=== PATIENT | male | born 1995 | race Caucasian/White ===

== ENCOUNTER 2021-04-10 00:46 | Emergency (ER) | payer OTHER, MEDICAID, SELFPAY ==
[2021-04-10 01:10] VITALS: BP 127/61; PULSE 66; RESP 16; TEMP 36.6; O2SAT 98; BMI 22.6
--- NOTE | 2021-04-10 01:43 | PC.NURSE ---
at bedside for primary eval.
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
[2021-04-10] MEDS: Acetaminophen 325 MG TABLET 975 MG PO (02:24)
[2021-04-10] MEDS: Ibuprofen 400 MG TABLET PO (02:24)
== END 2021-04-10 03:05 | disposition home or self-care (01) ==
PROVIDERS: Emergency Provider Student in an Organized Health Care Education/Training Program
DX: S09.90XA Unspecified injury of head, initial encounter (principal); G44.309 Post-traumatic headache, unspecified, not intractable; V43.52XA Car driver injured in collision with other type car in traffic accident, initial encounter; Y93.9 Activity, unspecified; Y92.410 Unspecified street and highway as the place of occurrence of the external cause; Y99.9 Unspecified external cause status
CPT/HCPCS: 99283

== ENCOUNTER 2025-05-11 13:23 | Outpatient (AMB) | payer OTHER, MEDICAID, MEDICARE, SELFPAY ==
--- NOTE | 2025-05-11 13:27 | A.OFFPC_ITS ---
Vital Signs 05/11/25 13:30 Height 5 ft 2.5 in Weight 138 lb 6 oz BMI 24.9 BP 104/70 Blood Pressure Location Lt brachial Position Sitting Respiration 16 Pulse 81 Pulse Source Pulse Oximeter Temp 97.5 F Temp Source Temporal Artery Scan Pulse Oximetry (%) 96 Oxygen Delivery Method Room Air Intake Visit Reasons: follow up, reestablish care City Dispatcher Required: No Accompanied by: Self / Same As Patient Allergies sulfadiazine Allergy (Unknown, Verified 05/11/25 13:28) Blister adapalene Adverse Reaction (Intermediate, Verified 05/11/25 14:12) burning, discomfort Medication List - Last Reconciled 05/11/25 by Cate Clark MD cholecalciferol (vitamin D3) 50 mcg PO DAILY citalopram 10 mg PO DAILY clindamycin phosphate 1% topical cyanocobalamin (vitamin B-12) 1,000 mcg PO DAILY docusate sodium 100 mg PO BID PRN fluticasone propionate 50 mcg/actuation 1 spray intranasal BID lorazepam 0.5 mg PO omeprazole 20 mg PO DAILY trazodone 50 mg PO BEDTIME triamcinolone acetonide 0.025% appl topical Tobacco use date assessed: 05/11/25 Dental Screening Dental Screen Date: 05/11/25 Did you have a dental visit in the last 12 months?: Yes Did you have a dental problem in the last 6 months where you did not have access to dental care?: No Was dental information given to patient?: Patient has dentist HPI HPI Comments History of Present Illness Details The patient is a 30-year-old male presenting for re-establishing care and follow-up Down Syndrome/Autism: Patient with Down syndrome , sees neurobehavioral specialist in [place]. Gastroesophageal Reflux Disease: Experiencing GERD with choking and phlegmy, clear vomit. Symptoms worse at night. Reflux detected with prior imaging. Omeprazole adjusted to 40 mg nightly. Atopic Dermatitis: Patient has atopic dermatitis with effective control from triamcinolone but recurs after cessation. Experienced an adverse reaction to Adapalene (burning). Amlactin used for the hands. Leukemia Screening: Routine CBCs performed for leukemia risk. No abnormalities have been noted in the CBC results. Aortic Regurgitation: History of aortic regurgitation. Last echo at [facility]. History of Pneumonia: Hospitalized November for pneumonia, resolved. Follow-up imaging showed no recurrence. Raynaud's- stable B12 deficiency - on b12 supplements Vitamin d deficiency- on vitamin d supplementation Depression/anxiety- stable Social History: - Lives with mother, who is his legal gu bruno - Attends a program called [employer] - Enjoys watching [employer] Story Review of Systems - Gastrointestinal: Reports reflux sympt oms including choking and phlegmy, clear vomit. - Dermatological: Reports irritation and burning with Adapalene use; reports atopic dermatitis flares. Physical Exam - General- Well-nourished, no swelling i n ankles. - Respiratory- No wheezing or abnormal l landy sounds. - Cardiovascular- Soft murmur detected; normal heart sounds. - Abd: SNTND, +BS - Skin- Noted redness in dermatitis-rela frank areas; no angry inflammation observed. Assessment and Plan 1. Down Syndrome - check CBC 2. Gastroesophageal Reflux Disease - Increase omeprazole to 40 mg at night. Reassess in two weeks. 3. Atopic Dermatitis - Use triamcinolone for flares. Avoid Ad apalene; consult hub cutter apprentice. 4. Aortic Regurgitation - Schedule echocardiogram; Discussion Notes During the visit, we discussed re-establishing care, focusing on Down syndrome and associated health management areas. The importance of ongoing leukemia screening through regular CBCs was highlighted due to increased risk in Down syndrome patients. Adjustments to the GERD treatment plan were outlined, increasing omeprazole to 40 mg for better symptom management and plan to monitor efficacy after two weeks. For atopic dermatitis, avoidance of Adapalene due to adverse reactions was advised, and the efficacy of triamcinolone was acknowledged, with a recommendation to explore non-steroidal alternatives in consultation with a hub cutter apprentice. Follow up in 3-4 months for wellness visit Patient Instructions - Take omeprazole 40 mg at night as dire cted. - Monitor changes in reflux symptoms and report in two weeks. - Apply triamcinolone cream as needed fo r skin flares. Avoid Adapalene. - Follow up with the hub cutter apprentice warren lauren skin treatment options. [facility] Medical History (Updated 05/11/25 @ 17:42 by Cate Clark MD) Vitamin D deficiency B12 deficiency Raynaud disease Anxiety Depression Aortic regurgitation Autism Sleep apnea Down syndrome Social History Housing: House Patient Tobacco Use Status: Never used Tobacco e-Cigarette/Vaping Use: Never Used Current occupational status: disabled Questionnaire AUDIT C Alcohol Use Questionnaire (AUDIT-C) 1. How often do you have a drink containing alcohol?: Never 3. How often do you have six or more drinks on one occasion?: Never Total Score: 0 Physical exam (Primary Care) Vital Signs: Last Vital Signs Temp 97.5 F 05/11/25 13:30 Pulse 81 05/11/25 13:30 Resp 16 05/11/25 13:30 BP 104/70 05/11/25 13:30 Pulse Ox 96 05/11/25 13:30 Oxygen Delivery Method Room Air 05/11/25 13:30 BMI result Body Mass Index 24.9 Tobacco/Smoking Status: Tobacco use Status Tobacco use date assessed 05/11/25 05/11/25 13:39 Patient Tobacco Use Status Never used Tobacco 05/11/25 13:39 e-Cigarette/Vaping Use Never Used 05/11/25 13:39 Coding Level of Care Code Est Pt Level 4 (32787) Complex EM visit Add On G2211 Diagnoses Down syndrome Q90.9 Autism F84.0 Raynaud's disease without gangrene I73.00 Raynaud?s-associated gangrene presence: without gangrene B12 deficiency E53.8 Vitamin D deficiency E55.9 Aortic valve insufficiency, etiology of cardiac valve disease unspecified I35.1 Cardiac valve disease etiology: etiology unspecified Assessment & Plan Assessment & Plan (1) Down syndrome: Code(s): Q90.9 - Down syndrome, unspecified Category: Medical (2) Autism: Code(s): F84.0 - Autistic disorder Category: Medical (3) Raynaud disease: Code(s): I73.00 - Raynaud's syndrome without gangrene Category: Medical Qualifiers: Raynaud?s-associated gangrene presence: without gangrene Qualified Code(s): I73.00 - Raynaud's syndrome without gangrene Plan: see above, continue to monitor (4) B12 deficiency: Code(s): E53.8 - Deficiency of other specified B group vitamins Category: Medical (5) Vitamin D deficiency: Code(s): E55.9 - Vitamin D deficiency, unspecified Category: Medical (6) Aortic regurgitation: Code(s): I35.1 - Nonrheumatic aortic (valve) insufficiency Category: Medical Qualifiers: Cardiac valve disease etiology: etiology unspecified Qualified Code(s): I35.1 - Nonrheumatic aortic (valve) insufficiency Plan - Omeprazole 40 mg nightly. - Echocardiogram order for aortic regurgitation. - CBCs for leukemia risk monitoring. - Continue triamcinolone use; avoid Adapalene. - Follow up in 3-4 months Orders: Orders Lipid Panel Today E53.8 - Deficiency of other specified B group vitamins, E55.9 - Vitamin D deficiency, unspecified, F84.0 - Autistic disorder, I73.00 - Raynaud's syndrome without gangrene, Q90.9 - Down syndrome, unspecified Vitamin D 25-OH Total Today E53.8 - Deficiency of other specified B group vitamins, E55.9 - Vitamin D deficiency, unspecified, F84.0 - Autistic disorder, I73.00 - Raynaud's syndrome without gangrene, Q90.9 - Down syndrome, unspecified Comprehensive Met. Panel Today E53.8 - Deficiency of other specified B group vitamins, E55.9 - Vitamin D deficiency, unspecified, F84.0 - Autistic disorder, I73.00 - Raynaud's syndrome without gangrene, Q90.9 - Down syndrome, unspecified Complete Blood Count Auto Diff Today E53.8 - Deficiency of other specified B group vitamins, E55.9 - Vitamin D deficiency, unspecified, F84.0 - Autistic disorder, I73.00 - Raynaud's syndrome without gangrene, Q90.9 - Down syndrome, unspecified TSH reflex Free T4 Today E53.8 - Deficiency of other specified B group vitamins, E55.9 - Vitamin D deficiency, unspecified, F84.0 - Autistic disorder, I73.00 - Raynaud's syndrome without gangrene, Q90.9 - Down syndrome, unspecified Vitamin B12 Today E53.8 - Deficiency of other specified B group vitamins, E55.9 - Vitamin D deficiency, unspecified, F84.0 - Autistic disorder, I73.00 - Raynaud's syndrome without gangrene, Q90.9 - Down syndrome, unspecified Magnesium Today E53.8 - Deficiency of other specified B group vitamins, E55.9 - Vitamin D deficiency, unspecified, F84.0 - Autistic disorder, I73.00 - Raynaud's syndrome without gangrene, Q90.9 - Down syndrome, unspecified CA echo transthoracic complete Today I35.1 - Nonrheumatic aortic (valve) insufficiency, Q90.9 - Down syndrome, unspecified Medications: New omeprazole 40 mg PO DAILY 30 caps 0RF night time reflux 30 days
[2025-05-11 13:30] VITALS: BP 104/70; PULSE 81; RESP 16; TEMP 36.4; O2SAT 96; BMI 24.9
--- OUTSIDE RECORDS SUMMARY | 2025-05-11 16:20 | XMS_ITS | Data Portability ---
Author Organization MD - [facility], Allergy Address [address] [place] [id number] Care Team Providers Care Field Representative/Health Education Name Role Phone BRANDI DAMIAN Primary Care Provider Assessment No assessment recorded. Plan of Treatment Reminders Order Date Submit Date Provider Last Modified By Organization Details Last Modified Time Details Appointments Establish ed 15 2024 02:00P M PURNIMA SHANNON MD Not available Not available Not available Lab None recorded. Referral None recorded. Procedures None recorded. Surgeries None recorded. Imaging None recorded. Medication Orders tobramyci n 0.3 %-dexamet hasone 0.05 % eye drops,thaddeus pension 2024 025 [facility][id number], [address] [place], [place], [phone], 03/25/2025 10:47:59 Patient TargetsNo targets recorded. Patient InstructionsNo instructions recorded. Reason for Referral None Reported. Results Created Date Observation Date Name Description Value Unit Range Abnormal Flag Note LastModifiedBy Organization Detail LastModifiedTime 02/25/2007/16/2022 imagi ng/di agnos tic resul t No observ ation record ed. [email or web address] Not Available 12:21:11 02/25/2008/15/2023 imagi ng/di agnos tic resul t No observ ation record ed. [email or web address] Not Available 12:21:12 02/25/20 24 10/27/2018 audio gram No observ ation record ed. [email or web address] Not Available 12:21:22 02/25/20 24 10/31/2020 imagi ng/di agnos tic resul t No observ ation record ed. [email or web address] Not Available 12:21:26 02/25/20 24 07/16/2022 audio gram No observ ation record ed. [email or web address] Not Available 12:21:32 02/25/20 24 10/27/2018 audio gram No observ ation record ed. [email or web address] Not Available 12:21:41 02/25/20 24 10/31/2020 audio gram No observ ation record ed. [email or web address] Not Available 12:21:46 Result Notes None recorded. 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 Chromosom al anomalies : Down's syndrome; Note: Date Diagnosed : 11/16/2014 4:08 PM (758.0) Not Available [facility] 4 03:12:52 Impacted cerumen 52445006 Active 2014 Impacted cerumen; Note: Date Diagnosed : 11/16/2014 4:13 PM (380.4) Not Available [facility] 4 03:12:52 Abnormal auditory perceptio n 60504982 Active 2015 Other abnormal auditory perceptio ns, bilateral ; Note: Date Diagnosed : 6 5:24 PM (H93.293) Not Available [facility] 4 03:12:52 Impacted cerumen in left ear 92341367420 19759 Active 2016 Impacted cerumen, left ear; Note: Date Diagnosed : 7 10:11 AM (H61.22) Not Available [facility] 4 03:12:51 Impacted cerumen of bilateral ears 98032595994 00562 Active 2018 Impacted cerumen, bilateral ; Note: Date Diagnosed : 10/27/2018 9:43 AM (H61.23) Not Available [facility] 4 03:12:51 Otorrhea of right ear 97817019591 69111 Active 2021 Otorrhea, right ear; Note: Date Diagnosed : 2 4:41 PM (H92.11) Not Available [facility] 4 03:12:52 Acute contact otitis externa 62302332 Active 2022 Acute contact otitis externa, right ear; Note: Date Diagnosed : 01/28/2023 4:47 PM (H60.531) Not Available [facility] 4 03:12:52 Obstructi ve sleep apnea syndrome 97602828 Active 2022 Obstructi ve sleep apnea (adult) (pediatri c); Note: Date Diagnosed : 11/16/2014 4:13 PM (327.23) ; Start Date : 5 Obstruc tive sleep apnea (adult) (pediatri c); Note: Date Diagnosed : 3 4:07 PM (G47.33) Not Available [facility] 4 03:12:52 Impacted cerumen in right ear 39568177459 62380 Active 2022 Impacted cerumen, right ear; Note: Date Diagnosed : 3 4:07 PM (H61.21) Not Available [facility] 4 03:12:53 Acute myringiti s of right ear 56983507145 12448 Active 2024 PURNIMA SHANNON MD [address] [place] [address], [place], [address] , [facility] - [facility] 5 10:46:13 Problem Notes None recorded. Medical Equipment None Reported. Allergies No known drug allergies Medications Name Sig Start Date Stop Date Status Note LastModified by Organization Details LastModified Time Prescript ion - Change active Not Available Not Available Not Available oxcarbaze pine 150 mg tablet 04/30 completed Medicati on ID: [id number] D uration Value: 90 Brand Name: oxcarbaz epine Se nd Method: E-Prescr ibed Sub s Allowed: subs OK Speci al Instruct ion: TK 1 T PO BID Medi cationGe nericNam e: oxcarbaz epine Not Available Not Available Not Available trazodone 50 mg tablet TAKE 1 TABLET BY MOUTH AT BEDTIME active Not Available Not Available No t Available benzonata te 200 mg capsule TAKE 1 CAPSULE BY MOUTH THREE TIMES DAILY FOR 7 DAYS NEEDED FOR COUGH. DO NOT CRUSH OR CHEW 03/25 completed Not Available Not Available Not Available citalopra m 10 mg tablet TAKE 1 TABLET BY MOUTH IN THE MORNING active Not Available Not Available No t Available tretinoin 0.025 % topical cream active Not Available Not Available Not Available senna 8.6 mg tablet TAKE 1 TABLET BY MOUTH EVERY NIGHT AT BEDTIME NEEDED FOR CONSTIPA TION active Not Available Not Available No t Available minocycli ne 100 mg capsule 03/25 completed Not Available Not Available Not Available cyanocoba enrico (vit B-12) 1,000 mcg tablet TAKE 1 TABLET BY MOUTH DAILY active Not Available Not Available No t Available doxycycli ne monohydra te 100 mg tablet TAKE 1 TABLET BY MOUTH TWICE DAILY FOR 14 DAYS 03/25 completed Not Available Not Available Not Available triamcino lone acetonide 0.1 % topical cream 04/30 completed Medicati on ID: [id number] D uration Value: 30 Brand Name: triamcin olone acetonid e Send Method: E-Prescr ibed Sub s Allowed: subs OK Speci al Instruct ion: APPLY TOPICALL Y BID PRN FOR RASH Med icationG enericNa me: triamcin olone acetonid e Not Available Not Available Not Available dexametha sone sodium phosphate 0.1 % eye drops INSTILL 2 DROPS TO RIGHT EAR TWICE DAILY FOR 10 DAYS active Not Available Not Available No t Available ofloxacin 0.3 % ear drops Instill 5 drops twice a day by otic route for 10 days, for right ear. 04/15 completed Not Available Not Available Not Available amoxicill in 875 mg tablet TAKE 1 TABLET BY MOUTH TWICE DAILY FOR 7 DAYS active Not Available Not Available No t Available lorazepam 0.5 mg tablet TAKE 1 TABLET BY MOUTH NEEDED FOR ANXIETY AND MAY REPEAT ONCE IN 30 MINUTES NEEDED. NOT TO EXCEED 2 DOSES IN 24 HOURS active Not Available Not Available No t Available clindamyc in 1 % topical gel 04/30 completed Medicati on ID: [id number] D uration Value: 30 Brand Name: rose marie lopez phosphat e Send Method: E-Prescr ibed Sub s Allowed: subs OK Specsaroj al Instruct ion: WESLEY EXT AA BID PRF ACNE Med icationG enericNa me: rose marie lopez phosphat e Not Available Not Available Not Available Ear Drops (carbamid e peroxide) 6.5 % PLACE 5 DROPS IN BOTH EARS TWICE DAILY FOR 4 DAYS. 03/25 completed Not Available Not Available Not Available docusate sodium 100 mg capsule TAKE 1 CAPSULE BY MOUTH TWICE DAILY NEEDED FOR CONSTIPA TION active Not Available Not Available No t Available omeprazol e 20 mg capsule,d elayed release TAKE 1 CAPSULE BY MOUTH DAILY BEFORE A MEAL active Not Available Not Available No t Available mupirocin 2 % topical ointment APPLY TOPICALL Y TO THE AFFECTED AREA TWICE DAILY FOR 14 DAYS APPLY TO AFFECTED SKIN active Not Available Not Available No t Available ondansetr on 4 mg disintegr ating tablet DISSOLVE 1 TABLET UNDER THE TONGUE THREE TIMES DAILY NEEDED FOR FOR NAUSEA OR VOMITING active Not Available Not Available No t Available fluticaso ne propionat e 50 mcg/actua tion nasal spray,thaddeus pension SHAKE LIQUID AND USE 1 SPRAY IN EACH NOSTRIL TWICE DAILY active Not Available Not Available No t Available doxycycli ne hyclate 100 mg tablet TAKE 1 TABLET BY MOUTH EVERY 12 HOURS FOR 7 DAYS 03/24 completed Not Available Not Available Not Available amoxicill in 875 mg-potass ium clavulana te 125 mg tablet TAKE 1 TABLET BY MOUTH EVERY 12 HOURS FOR 7 DAYS 03/24 completed Not Available Not Available Not Available clindamyc in 1 % lotion active Not Available Not Available Not Available aripipraz ole 5 mg tablet 04/30 completed Medicati on ID: [id number] D uration Value: 90 Brand Name: aripipra zole Sen d Method: E-Prescr ibed Sub s Allowed: subs ANDREY Ortiz al Instruct ion: TK 1 T PO D Medica tionGene ricName: aripipra zole Not Available Not Available Not Available Ciprodex 0.3 %-0.1 % ear drops,thaddeus pension Apply 4 drop into right ear twice a day as directed 12/14/ 2022 09/19 /2025 completed Medicati on ID: [id number] D uration Value: 14 Brand Name: Jovita Send Method: E-Prescr ibed Sub s Allowed: subs OK Medic ationGen ericName : Jovita Not Available Not Available Not Available adapalene 0.3 % topical gel APPLY SPARINGL Y TOPICALL Y TO FACE AT BEDTIME FOR ACNE active Not Available Not Available No t Available cholecalc iferol (vitamin D3) 50 mcg (2,000 unit) capsule TAKE 1 CAPSULE BY MOUTH DAILY active Not Available Not Available No t Available tobramyci n 0.3 %-dexamet hasone 0.05 % eye drops,thaddeus pension 4 drops to right ear twice a day for 10 days 2024 active Not Available Not Available Not Avai lable Vitals Date Recorded Body height Body mass index (BMI) Body weight Provider Name and Address Organization Details Last Updated DateTime 03/25/2024 154.94 cm 25.3 kg/m2 36317.38 g Latricia Helm [facility] 03/25/2024 16:29:16 Date Recorded Body height Body mass index (BMI) Body weight Provider Name and Address Organization Details Last Updated DateTime 03/25/2025 154.94 cm 23.2 kg/m2 58720.86 g Latricia Helm [facility] 03/25/2025 10:29:45 Social History None recorded. Functional Status None recorded. Mental Status None recorded. Family History Nothing Reported. Medical History No medical history recorded. Past Encounters Encounter ID Performer Location Encounter Start Date Encounter Closed Date Diagnosis/Indication Diagnosis SNOMED-CT Code Diagnosis ICD10 Code Diagnosis IMO Codes Diagnosis Note [id number] PURNIMA SHANNON MD [facility] [address] [address] 03/25/2024 15:23:02 03/25/2024 16:46:38 Impacted cerumen of bilateral ears [id number] 787309 H61.23 Cerumen was removed bilateral and tolerated well. Every 6 month cleaning previously recommende d due to infections when he was getting cleanings once a year. Will be due for updated audiogram at that time. [id number] PURNIMA SHANNON MD [facility] [address] [place] [address] 03/25/2025 10:24:54 03/25/2025 10:53:48 Acute myringitis of right ear [id number] 411821 H73.001 [id number] 30-year-ol d male presents today for evaluation . He is usually here every 6 months but was last seen a year ago. Dried blood was removed from the right ear canal, revealing granulatio n of the posterior TM consistent with acute myringitis . I sent in eardrops and recommende d dry ear precaution s. There was no obstructiv e cerumen on the left. Follow-up 2 weeks to ensure efficacy of treatment or if otherwise well, 6 months. Health Concerns Section Related Observation LastModified by Organization Detai ls LastModified Time None Recorded Concern Status LastModified by Organization Details LastModified Time None Recorded Advance Directives Directive None Recorded Payers Insurance Date Sequence Insurance Name Policy Number Policy Singh Covered Member ID Singh Member ID Guarantor Name 04/08/2025 2 [place] [facility] Huertas [id number] Adelaide Huertas 04/08/2025 1 [place] [employer] Jose Luis Huertas [id number] Adelaide Huertas Notes Date Note Type Note Provider Name and Address Organization Details Recorded Time 03/25/2024 text/html Here for cerumen removal, mom removed some from the left ear recently. No infections PV: : 28-year-old with trisomy 21 and mild obstructive sleep apnea. I was finally able to visualize is oropharynx today. Tonsils are 2+. He does havemacroglossia. Sleep study completed in August with overall AHI of 9.4. According to sleep medicine, he does not meet Medicare criteria for positive pressuredevice coverage.Given lack of tonsil hypertrophy, I do not feel that he is a good surgical candidate. Recommend that they continue to follow with sleep medicine. He may considermandibular advancement device if still unable to qualify for PAP.Follow-up in six months for cerumen check. PURNIMA SHANNON MD [address] [facility],[place] [address], [place], [address], [facility] - [facility] 03/26/2024 08:03:29 03/25/2025 text/html a few days ago, something dark in the ear went to yesterdaybleeding from the ear earlier this year had an ear wash on amoxicillin no ear drops PURNIMA SHANNON MD [address] [place] [address], [place], [address], [place] - [facility] 03/26/2025 07:17:37
== END 2025-05-11 14:43 | disposition home or self-care (01) ==
LOC: HO.HMCHD 13:24
PROVIDERS: Visit Provider Internal Medicine
DX: Q90.9 Down syndrome, unspecified (principal); F84.0 Autistic disorder; I73.00 Raynaud's syndrome without gangrene; E53.8 Deficiency of other specified B group vitamins; E55.9 Vitamin D deficiency, unspecified; I35.1 Nonrheumatic aortic (valve) insufficiency

== ENCOUNTER 2025-05-14 12:58 | Outpatient (REF) | payer MEDICARE, MEDICAID, SELFPAY ==
--- OUTSIDE RECORDS SUMMARY | 2025-05-11 23:59 | XMS_ITS | Continuity of Care Document ---
Author Organization [facility] Address [address] [place] [address]- Care Team Providers Care Sewer And Drain Technician Name Role Phone Eduardo MCDOWELL, Cate Velasquez Primary Care Physician [place] [facility] [place]/25 [facility] [address] [place] [address]- Attending Physician: Shoaib Lombardi Admitting Physician: Shoaib Lombardi Referring Physician: AdmShoaib alcocer Encounter Type: Triage Allergies, Adverse Reactions, Alerts Substance Criticality Severity Reaction Reaction Severity Status sulfa drugs Active Immunizations Given and Recorded Vaccine Date Status Refusal Reason influenza virus vaccine, inactivated 1 05/19/24 Gi alexus influenza virus vaccine, inactivated 2 05/19/24 Gi alexus influenza virus vaccine, inactivated 3 08/21/21 Gi alexus influenza virus vaccine, inactivated 4 05/15/20 Gi alexus influenza virus vaccine, inactivated 5 05/28/19 Gi alexus influenza virus vaccine, inactivated 6 04/09/18 Gi alexus SARS-CoV-2 (COVID-19) mRNA BNT-162b2 vac 06/21/21 Recorded SARS-CoV-2 (COVID-19) mRNA BNT-162b2 vac 10/25/20 Given SARS-CoV-2 (COVID-19) mRNA BNT-162b2 vac 10/04/20 Given tetanus/diphtheria/pertussis, acel(Tdap) 7 05/28/19 Given tetanus/diphtheria/pertussis, acel(Tdap) 10/11/15 Recorded Meningococcal Conjugate Vaccine 10/11/15 Recorded 1Result Comment: [facility] [id number] 2Result Comment: [id number] given w/out incident 3Result Comment: PT. TOLERATED INJ. WITHOUT COMPLICATIONS....[place] 4Result Comment: [facility]# [id number] 5Result Comment: [facility]# [id number] pt. tolerated inj. without complications....[place] 6Result Comment: [04/10/2018] [facility]# [id number] pt. tolerated inj. without complications....[place] 7Result Comment: [facility]# [id number] pt. tolerated inj. without complications....[place] Medications adapalene 0.3% topical gel APPLY SPARINGLY TO BACK AND FACE DAILY AT BEDTIME FOR ACNE. Start Date: 05/19/24 Status: Ordered Medication Dispense Status: Completed Total Allowed Fills: 1 Fills Dispensed: 0 [place] Saline Mist 0.65% nasal spray 2 sprays, Nares, Both, 4 times a day, # 1 each, 0 Refills, Maintenance, 03/24/25 10:41:00 AM EDT, [facility] #[id number], Partial fill upon patient request if the prescription is for a schedule II opioid drug., 2 sprays Nares, Both 4 times a day, 155, cm, 03/24/25 9:59:00 EDT, Height, 60, kg, 03/24/25 9:59:00 EDT, Dry Weight Start Date: 03/24/25 Status: Ordered Medication Dispense Status: Completed Quantity: 1.0 Unit: each Total Allowed Fills: 1 Fills Dispensed: 0 Indications: Acute upper respiratory infection, unspecified; citalopram 10 mg oral tablet TK 1 T PO D Start Date: 05/28/19 Status: Ordered Medication Dispense Status: Completed Total Allowed Fills: 1 Fills Dispensed: 0 clindamycin 1% topical lotion 0 Refills, Maintenance, 08/20/22 2:52:00 PM EST, Partial fill upon patient request if the prescription is for a schedule II opioid drug. Start Date: 08/20/22 Status: Ordered Medication Dispense Status: Completed Total Allowed Fills: 1 Fills Dispensed: 0 clotrimazole 1% topical cream 1 application, Topically, 2 times a day, PRN rash, # 30 Gm, 5 Refills, Maintenance, 03/19/21 10:59:00 AM EDT, Cream, [facility] #[id number], 1 application Topically 2 times a day,PRN:rash, 158.5,cm, 03/19/21 10:20:00 EDT, Height Start Date: 03/19/21 Status: Ordered Medication Dispense Status: Completed Quantity: 30.0 Unit: g Total Allowed Fills: 6 Fills Dispensed: 0 Colace sodium 100 mg oral capsule 100 mg, 1, capsule, By Mouth, 2 times a day, PRN, # 60 capsule, Refills 7, Tot. Refills 7, Maintenance, for constipation, 05/19/24 2:39:00 PM EST, Route to Pharmacy Electronically, [facility] #[id number], Partial fill upon patient request if the prescription is for a schedule II opioid drug., 156, cm, 05/19/24 13:57:00 EST, Height, 63, kg, 05/19/24 13:57:00 EST, Dry Weight Start Date: 05/19/24 Status: Ordered Medication Dispense Status: Completed Quantity: 60.0 Unit: capsule Total Allowed Fills: 8 Fills Dispensed: [address] with IPAP 14, EPAP 8 and RR 14, Maintenance, 09/27/15 10:38:04 AM EDT, Compound Start Date: 09/27/15 Status: Ordered Medication Dispense Status: Completed Total Allowed Fills: 1 Fills Dispensed: 0 fluticasone 50 mcg/inh nasal spray 1 sprays = 50 mcg, Nares, Both, 2 times a day, # 16 Gm, 0 Refills, Maintenance, 03/24/25 10:41:00 AMEDT, [place], [facility] #[id number], Partial fill upon patient request if the prescription is for a schedule II opioid drug., 1 sprays Nares, Both 2 times a day, 155, cm, 03/24/25 9:59:00 EDT, Height, 60, kg, 03/24/25 9:59:00 EDT, Dry Weight Start Date: 03/24/25 Status: Ordered Medication Dispense Status: Completed Quantity: 16.0 Unit: g Total Allowed Fills: 1 Fills Dispensed: 0 Indications: Acute upper respiratory infection, unspecified; Hibiclens 4% soap See Instructions, apply Topically Once, # 473 mL, 1 Refills, Soft Stop, 10/28/23 3:20:00 PM EDT, [facility] #[id number], Partial fill upon patient request if the prescription is for a schedule IIopioid drug., apply Topically Once, 155, cm, 10/28/23 14:03:00 EDT, Height, 58.5, kg, 04/04/22 16:19:00 EDT, Dry Weight Start Date: 10/28/23 Status: Ordered Medication Dispense Status: Completed Quantity: 473.0 Unit: mL Total Allowed Fills: 2 Fills Dispensed: 0 hydrOXYzine hydrochloride 10 mg oral tablet See Instructions, PRN anxiety, 1- 2 tablet By Mouth 2 times per day as needed for anxiety, # 30 tablet, 0 Refills, Maintenance, 08/20/22 2:57:00 PM EST, Tablet, [facility] #[id number], Partial fill upon patient request if the prescription is for a schedule II opioid drug., 155, cm, 08/20/22 14:15:00 EST, Height, 58.5, kg, 04/04/22 16:19:00 EDT, Dry Weight Start Date: 08/20/22 Status: Ordered Medication Dispense Status: Completed Quantity: 30.0 Unit: tablet Total Allowed Fills: 1 Fills Dispensed: 0 immunobio green cell supplement immunobio green cell supplement, Refills 0, Maintenance, 04/21/20 9:58:00 AM EDT, Supply Start Date: 04/21/20 Status: Ordered Medication Dispense Status: Completed Total Allowed Fills: 1 Fills Dispensed: 0 omeprazole 20 mg oral enteric coated capsule 1 capsule = 20 mg, By Mouth, Daily, before a meal, # 90 capsule, 2 Refills, Maintenance, 10/28/23 2:55:00 PM EDT, EC Capsule, [facility] #[id number], Partial fill upon patient request if the prescription is for a schedule II opioid drug., 155, cm, 10/28/23 14:03:00 EDT, Height, 58.5, kg, 04/04/22 16:19:00 EDT, Dry Weight Start Date: 10/28/23 Status: Ordered Medication Dispense Status: Completed Quantity: 90.0 Unit: capsule Total Allowed Fills: 3 Fills Dispensed: 0 Senna 8.6 mg oral tablet 8.6 mg, 1, tablet, By Mouth, Daily at bedtime, PRN, # 100 tablet, Refills 3, Tot. Refills 3, Maintenance, for constipation, 05/19/24 2:39:00 PM EST, Route to Pharmacy Electronically, [facility] #[id number] Tablet, Partial fill upon patient request if the prescription is for a schedule II opioid drug., 156, cm, 05/19/24 13:57:00 EST, Height, 63, kg, 05/19/24 13:57:00 EST, Dry Weight Start Date: 05/19/24 Status: Ordered Medication Dispense Status: Completed Quantity: 100.0 Unit: tablet Total Allowed Fills: 4 Fills Dispensed: 0 traZODone 50 mg oral tablet 25 mg, 0.5, tablet, By Mouth, Daily at bedtime, Refills 0, Maintenance, 03/03/17 9:19:41 AM EDT Start Date: 03/03/17 Status: Ordered Medication Dispense Status: Completed Total Allowed Fills: 1 Fills Dispensed: 0 triamcinolone 0.1% topical cream 0 Refills, Maintenance, 08/20/22 2:52:00 PM EST, Partial fill upon patient request if the prescription is for a schedule II opioid drug. Start Date: 08/20/22 Status: Ordered Medication Dispense Status: Completed Total Allowed Fills: 1 Fills Dispensed: 0 Vitamin B12 1000 mcg oral tablet 1 tablet = 1,000 mcg, By Mouth, Daily, # 90 tablet, 3 Refills, Maintenance, 11/23/24 2:55:00 PM EDT,Tablet, [facility] #[id number], Partial fill upon patient request if the prescription is for aschedule II opioid drug., 155, cm, 11/23/24 14:35:00 EDT, Height, 64, kg, 11/23/24 14:35:00 EDT, Dry Weight Start Date: 11/23/24 Status: Ordered Medication Dispense Status: Completed Quantity: 90.0 Unit: tablet Total Allowed Fills: 4 Fills Dispensed: 0 Vitamin D3 2000 intl units oral capsule 1 capsule = 50 mcg, By Mouth, Daily, # 90 capsule, 3 Refills, Maintenance, 11/23/24 2:55:00 PM EDT, Capsule, [facility] #[id number], Partial fill upon patient request if the prescription is for aschedule II opioid drug., 155, cm, 11/23/24 14:35:00 EDT, Height, 64, kg, 11/23/24 14:35:00 EDT, Dry Weight Start Date: 11/23/24 Status: Ordered Medication Dispense Status: Completed Quantity: 90.0 Unit: capsule Total Allowed Fills: 4 Fills Dispensed: 0 Problem List Condition Confirmation Course Effective Dates Status H ealth Status Informant Down syndrome Confirmed Active Aortic regurgitation 1 Confirmed Active Autism Confirmed Active Trisomy 21 Confirmed Active Constipation Confirmed Active Cough Confirmed Active Disorder of intellectual development Confirmed Active Encopresis Confirmed Active Fever Confirmed Active Hematochezia Confirmed Active Routine check-up Confirmed Active Raynaud disease Confirmed Active Depression, major Confirmed Active Sleep apnea Confirmed Active 1mild Social History Social History Type Response Sexual Gender identity: Mal e. Preferred pronoun: He/Him/His. Smoking Status Never smoker entered on: 05/31/14 Sex Sex Representation Male (finding) Patient Care team information Care Team Personnel Name: Cate Clark MD Position: Reference Physician Member Role: PCP Address: [address] [place] [address] [address] [facility] [place] [address]- Telecom: Care Team Related Persons Name: JS PARHAM Name: DENNIS ZAMBRANO Insurance Providers Guarantor name: KEATON ZAMBRANO Health Plan Information #: 1 Payer: MEDICARE B Payer Identifier: MARTI Member Number: [id number] Group Number: NA Subscriber Identifier: NA Relationship to Subscriber: self Coverage Type: NA Coverage Verification Date: NA Telecom: NA Address: NA Health Plan Information #: 2 Payer: [employer] Payer Identifier: MARTI Member Number: [id number] Group Number: MARTI Subscriber Identifier: MARTI Relationship to Subscriber: self Coverage Type: MEDICAID Coverage Verification Date: MARTI Telecom: MARTI Address: MARTI
--- OUTSIDE RECORDS SUMMARY | 2025-05-14 13:01 | XMS_ITS | Data Portability ---
Author Organization [place] - [facility], Allergy Address [address] [place] [address] Care Team Providers Care Food Service Ambassador Name Role Phone BRANDI DAMIAN Primary Care [...] 0.05 % eye drops,thaddeus pension 2024 025 [id number], [address] [place], [place], [phone], 03/25/2025 10:47:59 Patient TargetsNo targets recorded. 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 Chromosom al anomalies : Down's syndrome; Note: Date Diagnosed : 11/16/2014 4:08 PM (758.0) Not Available [facility] 4 03:12:52 Impacted cerumen 23359473 Active 2014 Impacted cerumen; Note: Date Diagnosed : 11/16/2014 4:13 PM (380.4) Not Available [facility] 4 03:12:52 Abnormal auditory perceptio n 35946967 Active 2015 Other abnormal auditory perceptio ns, bilateral ; Note: Date Diagnosed : 6 5:24 PM (H93.293) Not Available [facility] 4 03:12:52 Impacted cerumen in left ear 58578253578 90895 Active 2016 Impacted cerumen, left ear; Note: Date Diagnosed : 7 10:11 AM (H61.22) Not Available [facility] 4 03:12:51 Impacted cerumen of bilateral ears 60745987742 19353 Active 2018 Impacted cerumen, bilateral ; Note: Date Diagnosed : 10/27/2018 9:43 AM (H61.23) Not Available [facility] 4 03:12:51 Otorrhea of right ear 40076590965 98824 Active 2021 Otorrhea, right ear; Note: Date Diagnosed : 2 4:41 PM (H92.11) Not Available [facility] 4 03:12:52 Acute contact otitis externa 97261926 Active 2022 Acute contact otitis externa, right ear; Note: Date Diagnosed : 01/28/2023 4:47 PM (H60.531) Not Available [facility] 4 03:12:52 Obstructi ve sleep apnea syndrome 69776328 Active 2022 Obstructi ve sleep apnea (adult) (pediatri c); Note: Date Diagnosed : 11/16/2014 4:13 PM (327.23) ; Start Date : 5 Obstruc tive sleep apnea (adult) (pediatri c); Note: Date Diagnosed : 3 4:07 PM (G47.33) Not Available [facility] 4 03:12:52 Impacted cerumen in right ear 77813100302 41944 Active 2022 Impacted cerumen, right ear; Note: Date Diagnosed : 3 4:07 PM (H61.21) Not Available [facility] 4 03:12:53 Acute myringiti s of right ear 99085118366 11034 Active 2024 PURNIMA SHANNON MD [address] [place] [address], [place], [address] , [facility] - [facility] 5 10:46:13 Problem Notes None recorded. Medical Equipment None Reported. Allergies No known drug allergies Medications Name Sig Start Date Stop Date Status Note LastModified by Organization Details LastModified Time Prescript ion - Change active Not Available Not Available Not Available oxcarbaze pine 150 mg tablet 04/30 completed Medicati on ID: [id number] D uration Value: 90 Brand Name: oxcarbaz [...] topical cream 04/30 completed Medicati on ID: [id number] D uration Value: 30 Brand Name: triamcin [...] topical gel 04/30 completed Medicati on ID: [id number] D uration Value: 30 Brand Name: rose [...] mg tablet 04/30 completed Medicati on ID: [id number] D uration Value: 90 Brand Name: aripipra [...] 2022 09/19 /2025 completed Medicati on ID: [id number] D uration Value: 14 Brand Name: Jovita [...] Updated DateTime 03/25/2024 154.94 cm 25.3 kg/m2 69612.38 g Latricia Helm [facility] 03/25/2024 16:29:16 Date Recorded Body height Body mass index (BMI) Body weight Provider Name and Address Organization Details Last Updated DateTime 03/25/2025 154.94 cm 23.2 kg/m2 20758.86 g Latricia Helm [facility] Ear [facility] Th[facility] 03/25/2025 10:29:45 Social History None recorded. Functional Status None recorded. Mental Status None recorded. Family History Nothing Reported. Medical History No medical history recorded. Past Encounters Encounter ID Performer Location Encounter Start Date Encounter Closed Date Diagnosis/Indication Diagnosis SNOMED-CT Code Diagnosis ICD10 Code Diagnosis IMO Codes Diagnosis Note [id number] PURNIMA SHANNON MD [facility] [address] [address] 03/25/2024 15:23:02 03/25/2024 16:46:38 Impacted cerumen of bilateral ears [id number] 051905 H61.23 Cerumen was removed bilateral and tolerated well. Every 6 month cleaning previously recommende d due to infections when he was getting cleanings once a year. Will be due for updated audiogram at that time. [id number] PURNIMA SHANNON MD [facility] [address] [place] [address] 03/25/2025 10:24:54 03/25/2025 10:53:48 Acute myringitis of right ear [id number] H73.001 [id number] 30-year-ol d male presents today for evaluation [...] Member ID Guarantor Name 04/08/2025 2 [place] [facility] Jose Luis Huertas [id number] Adelaide Huertas 04/08/2025 1 [place] B[place]: [employer] Jose Luis Huertas [id number] Adelaide Huertas Notes Date Note Type Note [...] for cerumen check. PURNIMA SHANNON MD [address] [facility],[place] [address], [place], [address], [facility] - [facility] 03/26/2024 08:03:29 03/25/2025 text/html a few days ago, something dark in the ear went to yesterdaybleeding from the ear earlier this year had an ear wash on amoxicillin no ear drops PURNIMA SHANNON MD [address] [place] [address], [place], [address], [place] - [facility] 03/26/2025 07:17:37
--- OUTSIDE RECORDS SUMMARY | 2025-05-14 13:01 | XMS_ITS | Clinical Summary ---
Author Organization [facility] Address [address] [place] [address] Phone Care Team Providers Care Caregiver Assisted Living Name Role Phone Cate Clark Primary Care Provider [phone] Cate Clark Unavailable [phone] Cate Clark Unavailable [phone] Allergies No known active allergies Medications citalopram 10 mg tabletIndicatio ns:Anxiety Take 10 mg = 1 tablet by mouth 1 time each day. 30 tablet 4 03/04/2025 6 Active LORazepam 0.5 mg tabletIndicatio ns:Anxiety 1 tab PO PRN for anxiety and may repeat once in 30 minutes as needed, not to exceed 2 doses in 24 hours. 5 tablet 4 03/04/2025 Active traZODone 50 mg tabletIndicatio ns:Sleep concern Take 50 mg = 1 tablet by mouth at bedtime. 30 tablet 4 03/04/2025 6 Active Encounters Date Type Department Care Team Description 03/04/2025 1:45 PM EDT Office Visit [facility] [address] [place] [id number] Sawyer Lal MD Intellectual disability (Primary Dx); Down syndrome; Autism spectrum disorder; Mood change; Sleep concern; Anxiety; Disruptive mood dysregulation disorder (HCC); Complete trisomy 21 syndrome 03/04/2025 Travel from Last 3 Months Immunizations Immunization Administration Dates Next Due Pfizer Purple Cap SARS-CoV-2 10/25/2020 Social History Tobacco Use Types Packs/Day Years Used Date Smoking Tobacco: Never Assessed Sex and Gender Information Value Date Recorded Sex Assigned at Not on file Legal Sex Male 12:00 AM EDT Gender Identity Not on file Sexual Orientation Not on file Last Filed Vital Signs Vital Sign Reading Time Taken Comments Blood Pressure 115/74 03/04/2025 1:49 PM EDT Pulse 71 03/04/2025 1:49 PM EDT Temperature - - Respiratory Rate - - Oxygen Saturation - - Inhaled Oxygen Concentration - - Weight 62 kg (136 lb 11 oz) 03/04/2025 1:49 PM E DT Height 155 cm (5' 1.02 ) 03/04/2025 1:49 PM EDT Body Mass Index 25.81 03/04/2025 1:49 PM EDT Plan of Treatment Upcoming Encounters Date Type Department Care Team (Late st Contact Info) Description 08/01/2025 2:00 PM EST Telemedicine [facility] [address] [place] [phone] Sawyer Lal MD [address] [place] [address] Health Maintenance Due Date Last Done Comments Chlamydia and Gonorrhea Screening 1995 HIV Screening 1995 MMR Vaccines (1 of 1 - Standard series) 1996 Varicella Vaccines (1 of 2 - 13+ 2-dose series) 2008 Hepatitis C Screening 2013 Hepatitis B Vaccines (1 of 3 - 19+ 3-dose series) 2014 DTaP/Tdap/Td Vaccines (3 - Td or Tdap) 11/26/2019 05/28/2019, 10/11/2015 Influenza Vaccine (#1) 2025 4, 08/21/2021, 05/15/2020, Additional history exists Meningococcal Vaccine Aged Out 10/11/2015, 016 No longer eligible based on patient's age to complete this topic HIB Vaccines Aged Out No longer eligi ble based on patient's age to complete this topic HPV Vaccines (No Doses Required) Completed Hepatitis A Vaccines Aged Out No long er eligible based on patient's age to complete this topic IPV Vaccines Aged Out No longer eligi ble based on patient's age to complete this topic Meningococcal B Vaccine Aged Out No l onger eligible based on patient's age to complete this topic Pneumococcal Vaccine: Pediatrics (0 to 5 Years) and At-Risk Patients (6 to 49 Years) Aged Out No longer eligible based on patient's age to complete this topic Rotavirus Vaccines Aged Out No longer eligible based on patient's age to complete this topic Insurance MEDICARE [facility] MEDICARE [facility] MEDICARE [facility] MEDICARE [facility] Care Teams Caregiver Assisted Living Relationship Specialty Start Date End Date Cate Clark [address] [place] [address] PCP - General 11/14/23 Cate Clark [address] [place] [address] PCP - Clinical PCP 08/28/16 Cate Clark [address] [place] [address] PCP - Insurance PCP 08/28/16
--- OUTSIDE RECORDS SUMMARY | 2025-05-14 13:01 | XMS_ITS | Continuity of Care Document ---
Author Organization [place] - [facility], [facility] Address [address] [place] [address] Care Team Providers Care Ship Design Teacher Name Role Phone BRANDI DAIMAN Primary Care Provider Assessment No assessment recorded. [...] 0.05 % eye drops,thaddeus pension 2024 025 [id number], [address] [place], [place], [phone], 03/25/2025 10:47:59 Patient TargetsNo targets recorded. Patient InstructionsNo instructions recorded. Reason for Referral None Reported. 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 : Down's syndrome; Note: Date Diagnosed : 11/16/2014 4:08 PM (758.0) Not Available [facility] 4 03:12:52 Impacted cerumen 46602669 Active 2014 Impacted cerumen; Note: Date Diagnosed : 11/16/2014 4:13 PM (380.4) Not Available [facility] 4 03:12:52 Abnormal auditory perceptio n 79649019 Active 2015 Other abnormal auditory perceptio ns, bilateral ; Note: Date Diagnosed : 6 5:24 PM (H93.293) Not Available [facility] 4 03:12:52 Impacted cerumen in left ear 98514838371 30708 Active 2016 Impacted cerumen, left ear; Note: Date Diagnosed : 7 10:11 AM (H61.22) Not Available [facility] 4 03:12:51 Impacted cerumen of bilateral ears 61181520497 89509 Active 2018 Impacted cerumen, bilateral ; Note: Date Diagnosed : 10/27/2018 9:43 AM (H61.23) Not Available [facility] 4 03:12:51 Otorrhea of right ear 99381939522 97013 Active 2021 Otorrhea, right ear; Note: Date Diagnosed : 2 4:41 PM (H92.11) Not Available [facility] 4 03:12:52 Acute contact otitis externa 58274641 Active 2022 Acute contact otitis externa, right ear; Note: Date Diagnosed : 01/28/2023 4:47 PM (H60.531) Not Available [facility] 4 03:12:52 Obstructi ve sleep apnea syndrome 45300181 Active 2022 Obstructi ve sleep apnea (adult) (pediatri c); Note: Date Diagnosed : 11/16/2014 4:13 PM (327.23) ; Start Date : 5 Obstruc tive sleep apnea (adult) (pediatri c); Note: Date Diagnosed : 3 4:07 PM (G47.33) Not Available [facility] 4 03:12:52 Impacted cerumen in right ear 34096377268 30529 Active 2022 Impacted cerumen, right ear; Note: Date Diagnosed : 3 4:07 PM (H61.21) Not Available [facility] 4 03:12:53 Acute myringiti s of right ear 48081035169 27444 Active 2024 PURNIMA SHANNON MD [address] [place] [address], [place], [address] , [place] - [facility] 5 10:46:13 Problem Notes None recorded. Medical Equipment None Reported. Allergies No known drug allergies Medications Name Sig Start Date Stop Date Status Note LastModified by Organization Details LastModified Time Prescript ion - Change active Not Available Not Available Not Available oxcarbaze pine 150 mg tablet 04/30 completed Medicati on ID: [id number] D uration Value: 90 Brand Name: oxcarbaz [...] topical cream 04/30 completed Medicati on ID: [id number] D uration Value: 30 Brand Name: triamcin [...] topical gel 04/30 completed Medicati on ID: [id number] D uration Value: 30 Brand Name: clindamy john phosphat e Send Method: E-Prescr ibed Sub s Allowed: subs OK Speci al Instruct ion: WESLEY EXT AA BID PRF ACNE Med icationG enericNa me: clindamy john phosphat e Not Available Not Available Not [...] mg tablet 04/30 completed Medicati on ID: [id number] D uration Value: 90 Brand Name: aripipra zole Sen d Method: E-Prescr ibed Sub s Allowed: subs OK Speci al Instruct ion: TK 1 T PO D Medica tionGene ricName: aripipra zole Not Available Not Available Not Available Ciprodex 0.3 %-0.1 % ear drops,thaddeus pension Apply 4 drop into right ear twice a day as directed 03/25 completed Medicati on ID: [id number] D uration Value: 14 Brand Name: Ciprodex Send Method: E-Prescr ibed Sub s Allowed: subs OK Medic ationGen ericName : Ciprodex Not Available Not Available Not Available adapalene [...] Updated DateTime 03/25/2025 154.94 cm 23.2 kg/m2 92450.86 g Latricia Helm [place] - [facility] 03/25/2025 10:29:45 Social History None recorded. Functional Status None recorded. Mental Status None recorded. Family History Nothing Reported. Medical History No medical history recorded. Past Encounters Encounter ID Performer Location Encounter Start Date Encounter Closed Date Diagnosis/Indication Diagnosis SNOMED-CT Code Diagnosis ICD10 Code Diagnosis IMO Codes Diagnosis Note [id number] PURNIMA SHANNON MD [facility] [address] [facility] [place] [address] 03/25/2025 10:24:54 03/25/2025 10:53:48 Acute myringitis of right ear [id number] 019951 H73.001 [id number] 30-year-ol d male presents today for evaluation [...] by Organization Details LastModified Time None Recorded Payers Encounter Date Sequence Insurance Name Policy Number Policy Singh Covered Member ID Singh Member ID Guarantor Name 03/25/2025 2 [place] [facility] Jose Luis Obregon Aleksandar [id number] Adelaide Aleksandar 03/25/2025 1 [place] [employer] Jose Luis Huertas [id number] Adelaide Huertas Notes Date Note Type Note Provider Name and Address Organization Details Recorded Time 03/25/2025 text/html a few days ago, something dark in the ear [facility] the ear earlier this year had an ear wash on amoxicillin no ear drops PURNIMA SHANNON MD [address] [place] [address], [place], [address], [facility] - [facility] 03/26/2025 07:17:37
[2025-05-14 13:35] LABS: MANUAL DIFF FLAG NO
[2025-05-14 13:44] LABS: Hematocrit 47.5 % (42.0-52.0); Hemoglobin 16.6 g/dl (14.0-18.0); Imm Gran Abs Auto 0.01 X10*3/uL (0.00-0.03); Imm Gran Pct Auto 0.3 % (0.0-0.4); Lymphocytes Absolute Auto 1.1 X10*3/uL (1.2-4.9); Mean Corpuscular HGB Conc 34.9 g/dl (31.0-36.0); Mean Corpuscular Hemoglobin 32.4 pg (27.0-33.0); Mean Corpuscular Volume 92.6 fL (80.0-98.0); NRBC Abs Auto 0.000 X10*3/uL (0.0-0.012); NRBC Pct Auto 0.0 /100WBC (0.0-0.2); Platelet Count 226 X10*3/uL (160-400); Red Blood Count 5.13 X10*6/uL (4.60-5.80); White Blood Count 3.4 X10*3/uL (4.8-10.8)
[2025-05-14 14:05] LABS: Alanine Aminotransferase 42 U/L (0-40); Albumin Level 4.3 g/dL (3.5-5.0); Alkaline Phosphatase 138 U/L (39-117); Anion Gap 11 (12-20); Aspartate Amino Transferase 39 U/L (5-37); Blood Urea Nitrogen 10 mg/dL (9-16); Calcium 9.2 mg/dL (8.4-10.2); Carbon Dioxide 29 mmol/L (22-29); Chloride 106 mmol/L (96-108); Cholesterol 186 mg/dL (<200); Estimated Glomerular Filt Rate > 60; HDL Cholesterol 51 mg/dL (>40); Magnesium 2.0 mg/dL (1.6-2.6); Potassium 4.0 mmol/L (3.3-5.1); Sodium 142 mmol/L (135-145); Total Protein 7.1 g/dL (6.5-8.0); Triglycerides 81 mg/dL (<150)
[2025-05-14 14:29] LABS: Vitamin B12 947 pg/mL (200-900)
== END 2025-05-14 12:59 | disposition home or self-care (01) ==
LOC: HO.HMGCLDS 12:58
PROVIDERS: PCP Internal Medicine; Visit Provider Internal Medicine
DX: F84.0 Autistic disorder (principal); I73.00 Raynaud's syndrome without gangrene; Q90.9 Down syndrome, unspecified; E53.8 Deficiency of other specified B group vitamins; E55.9 Vitamin D deficiency, unspecified; Z13.6 Encounter for screening for cardiovascular disorders; Z13.29 Encounter for screening for other suspected endocrine disorder
CPT/HCPCS: 36415; 80053; 80061; 82306; 82607; 83735; 84443; 85025

== ENCOUNTER 2025-06-23 07:48 | Outpatient (REF) | payer MEDICARE, MEDICAID, SELFPAY ==
--- NOTE | ~2025-06-23 | US_ITS ---
CLINICAL HISTORY: R74.01 - Elevation of levels of liver transaminase levels --- Additional Notes or Special Instructions: liver ultrasound, elevated lfts US abdomen limited Comparison: None provided Findings: Pancreas is obscured due to overlying bowel gas. Limited visualized aspects of the inferior vena cava are unremarkable. Liver measures 14.6 cm in length. There is no intrahepatic bile duct dilatation. Common bile duct measures 0.3 cm in length. The gallbladder is normal. There is no sonographic Gay sign. The main portal vein is antegrade. Right kidney is 9.8 cm in length. No ascites. IMPRESSION: Unremarkable limited abdominal ultrasound. This document has been electronically signed by: Noah Cerda DO on 06/23/2025 13:51:54
--- OUTSIDE RECORDS SUMMARY | 2025-06-23 07:51 | XMS_ITS | Continuity of Care Document ---
Author Organization [place] - [facility], [facility] Address [address] [place] [address] Care Team Providers Care Handle Lathe Operator Name Role Phone NATI, BRANDI Primary Care Provider Assessment No assessment recorded. Plan of Treatment Reminders Order Date Submit Date Provider Last Modified By Organization Details Last Modified Time Details Appointments Establish ed 15 2025 01:30P M PURNIMA SHANNON MD Not available Not available Not available Hearing Test Same Day (After) 2025 02:00P M Hearing Test Not available Not available Not available Lab None recorded. Referral None recorded. Procedures None recorded. Surgeries None recorded. Imaging None recorded. Medication Orders tobramyci n 0.3 %-dexamet hasone 0.05 % eye drops,thaddeus pension 2024 025 [id number], [address] [place], [place], [phone], 06/06/2025 13:52:56 Patient TargetsNo targets recorded. Patient InstructionsNo instructions recorded. Reason for Referral None Reported. Problems Name Problem SNOMED Code Status Onset Date Resolution Date Notes Provider Name and Address Organization Details Recorded Time Complete trisomy 21 syndrome 77742481 Active 2014 Chromosom al anomalies : Down's syndrome; Note: Date Diagnosed : 11/16/2014 4:08 PM (758.0) Not Available [facility] 4 03:12:52 Impacted cerumen 82979826 Active 2014 Impacted cerumen; Note: Date Diagnosed : 11/16/2014 4:13 PM (380.4) Not Available [facility] 4 03:12:52 Abnormal auditory perceptio n 45083900 Active 2015 Other abnormal auditory perceptio ns, bilateral ; Note: Date Diagnosed : 6 5:24 PM (H93.293) Not Available [facility] 4 03:12:52 Impacted cerumen in left ear 42237303233 54455 Active 2016 Impacted cerumen, left ear; Note: Date Diagnosed : 7 10:11 AM (H61.22) Not Available [facility] 4 03:12:51 Impacted cerumen of bilateral ears 25688860313 02813 Active 2018 Impacted cerumen, bilateral ; Note: Date Diagnosed : 10/27/2018 9:43 AM (H61.23) Not Available [facility] 4 03:12:51 Otorrhea of right ear 59505836588 09828 Active 2021 Otorrhea, right ear; Note: Date Diagnosed : 2 4:41 PM (H92.11) Not Available [facility] 4 03:12:52 Acute contact otitis externa 02853912 Active 2022 Acute contact otitis externa, right ear; Note: Date Diagnosed : 01/28/2023 4:47 PM (H60.531) Not Available [facility] 4 03:12:52 Obstructi ve sleep apnea syndrome 48638198 Active 2022 Obstructi ve sleep apnea (adult) (pediatri c); Note: Date Diagnosed : 11/16/2014 4:13 PM (327.23) ; Start Date : 5 Obstruc tive sleep apnea (adult) (pediatri c); Note: Date Diagnosed : 3 4:07 PM (G47.33) Not Available [facility] 4 03:12:52 Impacted cerumen in right ear 08611911096 98640 Active 2022 Impacted cerumen, right ear; Note: Date Diagnosed : 3 4:07 PM (H61.21) Not Available [facility] 4 03:12:53 Acute myringiti s of right ear 34065302870 18966 Active 2024 PURNIMA SHANNON MD [address] [place] [address], [facility] [place] [place], [address] , [facility] - [facility] 5 10:46:13 Problem Notes None recorded. Medical Equipment None Reported. Allergies No known drug allergies Medications Name Sig Start Date Stop Date Status Note LastModified by Organization Details LastModified Time Prescript ion - Change 06/06 completed Not Available Not Available Not Available oxcarbaze pine 150 mg tablet 04/30 completed Medicati on ID: [id number] D uration Value: 90 Brand Name: oxcarbaz [...] t Available tretinoin 0.025 % topical cream 06/06 completed Not Available Not Available Not Available senna [...] Not Available No t Available omeprazol e 40 mg capsule,d elayed release TAKE 1 CAPSULE BY MOUTH DAILY FOR NIGHT TIME REFLUX FOR 30 DAYS. active Not Available Not Available No t Available doxycycli ne monohydra te 100 mg tablet TAKE 1 TABLET BY MOUTH TWICE DAILY FOR 14 DAYS 03/25 completed Not Available Not Available Not Available triamcino lone acetonide 0.1 % topical cream 04/30 completed Medicati on ID: [id number] D uration Value: 30 Brand Name: triamcin olone acetonid e Send Method: E-Prescr ibed Sub s Allowed: subs ANDREY hdez Instruct ion: APPLY TOPICALL Y BID PRN FOR RASH Med icationG enericNa me: triamcin olone acetonid e Not Available Not Available Not Available dexametha sone sodium phosphate 0.1 % eye drops INSTILL 2 DROPS TO RIGHT EAR TWICE DAILY FOR 10 DAYS 06/06 completed Not Available Not Available Not Available ofloxacin 0.3 % ear drops Instill 5 drops twice a day by otic route for 10 days, for right ear. 04/15 completed Not Available Not Available Not Available amoxicill in 875 mg tablet TAKE 1 TABLET BY MOUTH TWICE DAILY FOR 7 DAYS 06/06 completed Not Available Not Available Not Available lorazepam 0.5 mg tablet TAKE 1 TABLET BY MOUTH NEEDED FOR ANXIETY AND MAY REPEAT ONCE IN 30 MINUTES NEEDED. NOT TO EXCEED 2 DOSES IN 24 HOURS active Not Available Not Available No t Available clindamyc in 1 % topical gel 04/30 completed Medicati on ID: [id number] D uration Value: 30 Brand Name: clindamy john phosphat e Send Method: E-Prescr ibed Sub s Allowed: subs ANDREY hdez Instruct ion: WESLEY EXT AA BID PRF [...] MOUTH TWICE DAILY NEEDED FOR CONSTIPA TION 06/06 completed Not Available Not Available Not Available omeprazol e 20 mg capsule,d elayed release TAKE 1 CAPSULE BY MOUTH DAILY BEFORE A MEAL 06/06 completed Not Available Not Available Not Available mupirocin 2 % topical ointment APPLY [...] 1 SPRAY IN EACH NOSTRIL TWICE DAILY 06/06 completed Not Available Not Available Not Available doxycycli ne hyclate 100 mg tablet [...] mg tablet 04/30 completed Medicati on ID: [id number] D uration Value: 90 Brand Name: aripipra zole Sen d Method: E-Prescr ibed Sub s Allowed: subs OK Speci al Instruct ion: TK 1 T PO D Medica tionGene ricName: aripipra zole Not Available Not Available Not Available Ciprodex 0.3 %-0.1 % ear drops,tahddeus pension Apply 4 drop into right ear twice a day as directed 03/25 completed Medicati on ID: [id number] D uration Value: 14 Brand Name: Ciprodex [...] ear twice a day for 10 days 06/06 completed Not Available Not Available Not Available Vitals Date Recorded Body height Body mass index (BMI) Body weight Provider Name and Address Organization Details Last Updated DateTime 03/25/2025 154.94 cm 23.2 kg/m2 82218.86 g Latricia Potvin [place] - [facility] [place] 03/25/2025 10:29:45 Social History None recorded. Functional Status None recorded. Mental Status None recorded. Family History Nothing Reported. Medical History No medical history recorded. Past Encounters Encounter ID Performer Location Encounter Start Date Encounter Closed Date Diagnosis/Indication Diagnosis SNOMED-CT Code Diagnosis ICD10 Code Diagnosis IMO Codes Diagnosis Note [id number] PURNIMA SHANNON MD [facility] of [address] [address] 03/25/2025 10:24:54 03/25/2025 10:53:48 Acute myringitis of right ear [id number] H73.001 [id number] 30-year-ol d male presents today for evaluation [...] Singh Member ID Guarantor Name 03/25/2025 2 [place]: [facility] Jose Luis Huertas [id number] Adelaide Aleksandar 03/25/2025 1 [place] [employer] Jose Luis Obregon Huertas [id number] Adelaide Huertas Notes Date Note Type Note Provider Name and Address Organization Details Recorded Time 03/25/2025 text/html a few days ago, something dark in the ear [facility] earlier this year had an ear wash on amoxicillin no ear drops PURNIMA SHANNON MD [address] [place] [address], [place], [address], [place] - [facility] 03/26/2025 07:17:37
--- OUTSIDE RECORDS SUMMARY | 2025-06-23 07:51 | XMS_ITS | Continuity of Care Document ---
Author Organization [place] - [facility], [facility] Address [address] [place] [address] Care Team Providers Care Android Framework Developer Name Role Phone BRANDI DAMIAN Primary Care Provider [phone] Assessment No assessment recorded. Plan of Treatment [...] None recorded. Imaging None recorded. Medication Orders None recorded. Patient TargetsNo targets recorded. Patient InstructionsNo instructions recorded. Reason for Referral None Reported. Problems Name Problem SNOMED Code Status Onset Date Resolution Date Notes Provider Name and Address Organization Details Recorded Time Complete trisomy 21 syndrome 08865139 Active 2014 Chromosom al anomalies : Down's syndrome; Note: Date Diagnosed : 11/16/2014 4:08 PM (758.0) Not Available [facility] 4 03:12:52 Impacted cerumen 89951343 Active 2014 Impacted cerumen; Note: Date Diagnosed : 11/16/2014 4:13 PM (380.4) Not Available [facility] 4 03:12:52 Abnormal auditory perceptio n 05128228 Active 2015 Other abnormal auditory perceptio ns, bilateral ; Note: Date Diagnosed : 6 5:24 PM (H93.293) Not Available [facility] 4 03:12:52 Impacted cerumen in left ear 21328754167 56531 Active 2016 Impacted cerumen, left ear; Note: Date Diagnosed : 7 10:11 AM (H61.22) Not Available [facility] 4 03:12:51 Impacted cerumen of bilateral ears 76792172833 51357 Active 2018 Impacted cerumen, bilateral ; Note: Date Diagnosed : 10/27/2018 9:43 AM (H61.23) Not Available [facility] 4 03:12:51 Otorrhea of right ear 48250913799 51228 Active 2021 Otorrhea, right ear; Note: Date Diagnosed : 2 4:41 PM (H92.11) Not Available [facility] 4 03:12:52 Acute contact otitis externa 74923504 Active 2022 Acute contact otitis externa, right ear; Note: Date Diagnosed : 01/28/2023 4:47 PM (H60.531) Not Available [facility] 4 03:12:52 Obstructi ve sleep apnea syndrome 39190638 Active 2022 Obstructi ve sleep apnea (adult) (pediatri c); Note: Date Diagnosed : 11/16/2014 4:13 PM (327.23) ; Start Date : 5 Obstruc tive sleep apnea (adult) (pediatri c); Note: Date Diagnosed : 3 4:07 PM (G47.33) Not Available [facility] 4 03:12:52 Impacted cerumen in right ear 58096686276 16811 Active 2022 Impacted cerumen, right ear; Note: Date Diagnosed : 3 4:07 PM (H61.21) Not Available [facility] 4 03:12:53 Acute myringiti s of right ear 02085583376 60791 Active 2024 PURNIMA SHANNON MD [address] [place] [address], [facility] [place], [address] , [facility] - [facility] 5 10:46:13 Problem Notes None recorded. Medical Equipment None Reported. Allergies No known drug allergies Medications Name Sig Start Date Stop Date Status Note LastModified by Organization Details LastModified Time Prescript ion - Change 06/06 completed Not Available Not Available Not Available oxcarbaze pine 150 mg tablet 04/30 completed Medicati on ID: [id number] D uration Value: 90 Brand Name: oxcarbaz [...] topical cream 04/30 completed Medicati on ID: [id number] D uration Value: 30 Brand Name: triamcin [...] topical gel 04/30 completed Medicati on ID: [id number] D uration Value: 30 Brand Name: clindamy [...] MOUTH EVERY 12 HOURS FOR 7 DAYS 09/18 /2025 completed Not Available Not Available Not Available amoxicill in 875 mg-potass ium clavulana te 125 mg tablet TAKE 1 TABLET BY MOUTH EVERY 12 HOURS FOR 7 DAYS 03/24 completed Not Available Not Available Not Available clindamyc in 1 % lotion active Not Available Not Available Not Available aripipraz ole 5 mg tablet 04/30 completed Medicati on ID: [id number] D uration Value: 90 Brand Name: aripipra zole Sen d Method: E-Prescr ibed Sub s Allowed: subs OK Speci al Instruct ion: TK 1 T PO D Medica tionGene ricName: aripipra zole Not Available Not Available Not Available Ciprodex 0.3 %-0.1 % ear drops,thaddeus pension Apply 4 drop into right ear twice a day as directed 03/25 completed Medicati on ID: [id number] D uration Value: 14 Brand Name: Ciprodex [...] Not Available Vitals Date Recorded Body height Provider Name an d Address Organization Details Last Updated DateTime 06/06/2025 154.94 cm Latricia Helm [place] - [facility] 06/06/2025 13:51:11 Social History None recorded. Functional Status None recorded. Mental Status None recorded. Family History Nothing Reported. Medical History No medical history recorded. Past Encounters Encounter ID Performer Location Encounter Start Date Encounter Closed Date Diagnosis/Indication Diagnosis SNOMED-CT Code Diagnosis ICD10 Code Diagnosis IMO Codes Diagnosis Note [id number] PURNIMA SHANNON MD [facility] [address] [place] [address] 06/06/2025 13:43:06 06/06/2025 14:04:21 Impacted cerumen in right ear [id number] 856713 H61.21 Cerumen removed and tolerated well. No evidence of infection or persistent myringitis . Keep ear dry. Follow up 6 months with audio or sooner if concern for infection. Health Concerns Section Related Observation LastModified by Organization Detai ls LastModified Time None Recorded Concern Status LastModified by Organization Details LastModified Time None Recorded Payers Encounter Date Sequence Insurance Name Policy Number Policy Singh Covered Member ID Singh Member ID Guarantor Name 06/06/2025 2 MEDICAID-[place]: [facility] Jose Luis Huertas [id number] Adelaide Aleksandar 06/06/2025 1 MEDICARE B-[place]: [employer] Jose Luis Huertas [id number] Adelaide Huertas Notes Date Note Type Note Provider Name and Address Organization Details Recorded Time 06/06/2025 text/html No bleeding. There is some cerumen. PURNIMA SHANNON MD [address] [place] [address], [phone], [facility] - [facility] 06/07/2025 10:48:12
--- OUTSIDE RECORDS SUMMARY | 2025-06-23 07:51 | XMS_ITS | Clinical Summary ---
Author Organization [facility] spital Address [address] [place] [address] Phone Care Team Providers Care Firefighter Type One Name Role Phone Cate Clark Primary Care Provider [phone] Cate Clark Unavailable [phone] Cate Clark Unavailable Allergies No known active allergies Medications citalopram [...] bedtime. 30 tablet 4 03/04/2025 6 Active Immunizations Immunization Administration Dates Next Due Pfizer [...] Info) Description 08/01/2025 2:00 PM EST Telemedicine [facility] [address] [place] [address] Sawyer Lal MD [address] [place] [address] Health Maintenance Due Date Last Done Comments Chlamydia and Gonorrhea Screening 1995 HIV Screening 1995 MMR Vaccines (1 of 1 - Standard series) 1996 Varicella Vaccines (1 of 2 - 13+ 2-dose series) 2008 Hepatitis C Screening 2013 Hepatitis B Vaccines (1 of 3 - 19+ 3-dose series) 2014 DTaP/Tdap/Td Vaccines (3 - Td or Tdap) 11/26/2019 05/28/2019, 10/11/2015 COVID-19 Vaccine ( season) 2025 06/21/2021, 10/25/2020, 10/04/2020 Influenza Vaccine (#1) 2025 4, 08/21/2021, 05/15/2020, [...] age to complete this topic Insurance MEDICARE [facility] MEDICARE [facility] MEDICARE [facility] MEDICARE [facility] Care Teams Firefighter Type One Relationship Specialty Start Date End Date Cate Clark [address] [place] [address] PCP - General 11/14/23 Cate Clark [address] [place] [address] PCP - Clinical PCP 08/28/16 Cate Clark [address] [place] [address] PCP - Insurance PCP 08/28/16
--- OUTSIDE RECORDS SUMMARY | 2025-06-23 07:52 | XMS_ITS | Data Portability ---
Author Organization [place] - [facility], Allergy Address [address] [place] [address] Care Team Providers Care Tin Pourer Name Role Phone BRANDI DAMIAN Primary Care [...] 0.05 % eye drops,thaddeus pension 2024 0[id number], [address] [place], [place], [phone], 06/06/2025 13:52:56 Patient TargetsNo targets recorded. Patient InstructionsNo instructions recorded. Reason for Referral None Reported. Results Created Date Observation Date Name Description Value Unit Range Abnormal Flag Note LastModifiedBy Organization Detail LastModifiedTime 02/25/2007/16/2022 imagi ng/di agnos tic resul t No observ ation record ed. [email or web address] Not Available 12:21:11 02/25/20 24 08/15/2023 imagi ng/di agnos tic resul t No observ ation record ed. [email or web address] Not Available 12:21:12 02/25/20 24 10/27/2018 audio gram No observ ation record ed. 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 Chromosom al anomalies : Down's syndrome; Note: Date Diagnosed : 11/16/2014 4:08 PM (758.0) Not Available [facility] 4 03:12:52 Impacted cerumen 55925381 Active 2014 Impacted cerumen; Note: Date Diagnosed : 11/16/2014 4:13 PM (380.4) Not Available [facility] 4 03:12:52 Abnormal auditory perceptio n 69512295 Active 2015 Other abnormal auditory perceptio ns, bilateral ; Note: Date Diagnosed : 6 5:24 PM (H93.293) Not Available [facility] 4 03:12:52 Impacted cerumen in left ear 55028632476 25880 Active 2016 Impacted cerumen, left ear; Note: Date Diagnosed : 7 10:11 AM (H61.22) Not Available [facility] 4 03:12:51 Impacted cerumen of bilateral ears 11799915363 70119 Active 2018 Impacted cerumen, bilateral ; Note: Date Diagnosed : 10/27/2018 9:43 AM (H61.23) Not Available [facility] 4 03:12:51 Otorrhea of right ear 60367935379 57176 Active 2021 Otorrhea, right ear; Note: Date Diagnosed : 2 4:41 PM (H92.11) Not Available [facility] 4 03:12:52 Acute contact otitis externa 43196403 Active 2022 Acute contact otitis externa, right ear; Note: Date Diagnosed : 01/28/2023 4:47 PM (H60.531) Not Available [facility] 4 03:12:52 Obstructi ve sleep apnea syndrome 43832281 Active 2022 Obstructi ve sleep apnea (adult) (pediatri c); Note: Date Diagnosed : 11/16/2014 4:13 PM (327.23) ; Start Date : 5 Obstruc tive sleep apnea (adult) (pediatri c); Note: Date Diagnosed : 3 4:07 PM (G47.33) Not Available [facility] 4 03:12:52 Impacted cerumen in right ear 12873860309 62319 Active 2022 Impacted cerumen, right ear; Note: Date Diagnosed : 3 4:07 PM (H61.21) Not Available [facility] 4 03:12:53 Acute myringiti s of right ear 73462702032 57976 Active 2024 PURNIMA SHANNON MD [address] [place] [address], [place], [address] [facility] - [facility] 5 10:46:13 Problem Notes None recorded. Medical Equipment None Reported. Allergies No known drug allergies Medications Name Sig Start Date Stop Date Status Note LastModified by Organization Details LastModified Time Prescript ion - Change 06/06 completed Not Available Not Available Not Available oxcarbaze pine 150 mg tablet 04/30 completed Medicati on ID: [id number] D uration Value: 90 Brand Name: oxcarbaz [...] topical cream 04/30 completed Medicati on ID: [id number] D uration Value: 30 Brand Name: triamcin [...] topical gel 04/30 completed Medicati on ID: [id number] D uration Value: 30 Brand Name: rose marie john phosphat e Send Method: E-Prescr ibed [...] mg tablet 04/30 completed Medicati on ID: [id number] D uration Value: 90 Brand Name: aripipra zole Sen d Method: E-Prescr ibed Sub s Allowed: subs OK Speci al Instruct ion: TK 1 T PO D Medica tionGene ricName: aripipra zole Not Available Not Available Not Available Ciprodex 0.3 %-0.1 % ear drops,thaddeus pension Apply 4 drop into right ear twice a day as directed 03/25 completed Medicati on ID: [id number] D uration Value: 14 Brand Name: Ciprodex [...] Updated DateTime 03/25/2024 154.94 cm 25.3 kg/m2 40451.38 g Latricia Helm [place] - [facility] 03/25/2024 16:29:16 Date Recorded Body height Body mass index (BMI) Body weight Provider Name and Address Organization Details Last Updated DateTime 03/25/2025 154.94 cm 23.2 kg/m2 84662.86 g Latricia Helm [place] - [facility] 03/25/2025 10:29:45 Date Recorded Body height Provider Name an d Address Organization Details Last Updated DateTime 06/06/2025 154.94 cm Latricia Helm [place] - [facility] 06/06/2025 13:51:11 Social History None recorded. Functional Status None recorded. Mental Status None recorded. Family History Nothing Reported. Medical History No medical history recorded. Past Encounters Encounter ID Performer Location Encounter Start Date Encounter Closed Date Diagnosis/Indication Diagnosis SNOMED-CT Code Diagnosis ICD10 Code Diagnosis IMO Codes Diagnosis Note [id number] PURNIMA SHANNON MD [facility] [address] [place] [address] 03/25/2024 15:23:02 03/25/2024 16:46:38 Impacted cerumen of bilateral ears 0739101897 152272 H61.23 Cerumen was removed bilateral and tolerated well. Every 6 month cleaning previously recommende d due to infections when he was getting cleanings once a year. Will be due for updated audiogram at that time. [id number] PURNIMA SHANNON MD [facility] of [address] [address] 03/25/2025 10:24:54 03/25/2025 10:53:48 Acute myringitis of right ear 1904627033 672115 H73.001 530277 30-year-ol d male presents today for evaluation [...] treatment or if otherwise well, 6 months. [id number] PURNIMA SHANNON MD [facility] of [address] [address] 06/06/2025 13:43:06 06/06/2025 14:04:21 Impacted cerumen in right ear 1019436625 530826 H61.21 Cerumen removed and tolerated well. No [...] Singh Member ID Guarantor Name 06/06/2025 2 [place] [id number] Adelaide Huertas 06/06/2025 1 MEDICARE B-[place]: [facility] Jose Luis Huertas [id number] Adelaide Huertas Notes Date Note Type Note [...] for cerumen check. PURNIMA SHANNON MD [address] [facility],[address], [address], [facility] - [facility] 03/26/2024 08:03:29 03/25/2025 text/html a few days ago, something dark in the ear [facility] earlier this year had an ear wash on amoxicillin no ear drops PURNIMA SHANNON MD [address] [facility],[address], [address], [place] - [facility] 03/26/2025 07:17:37 06/06/2025 text/html No bleeding. There is some cerumen. PURNIMA SHANNON MD [address] [facility],[address], [address], [facility] - [facility] 06/07/2025 10:48:12
== END 2025-06-23 07:49 | disposition home or self-care (01) ==
LOC: HO.HMGCX 07:48
PROVIDERS: PCP Internal Medicine; Visit Provider Internal Medicine
DX: R74.01 Elevation of levels of liver transaminase levels (principal); R79.89 Other specified abnormal findings of blood chemistry
CPT/HCPCS: 76705

== ENCOUNTER → 2025-06-23 08:03 | Outpatient (BNV) | payer MEDICARE, MEDICAID, SELFPAY | PROVIDERS: PCP Internal Medicine; Visit Provider Family Medicine | DX: R74.01 Elevation of levels of liver transaminase levels (principal) | CPT/HCPCS: 76705 ==

== ENCOUNTER → 2025-07-05 06:53 | Outpatient (REF) | payer MEDICARE, MEDICAID, SELFPAY ==
--- OUTSIDE RECORDS SUMMARY | 2025-07-05 08:35 | XMS_ITS | Clinical Summary ---
Author Organization [facility] spital Address [address] [place] [address] Phone Care Team Providers Care Restaurant Lead Name Role Phone Cate Clark Primary Care Provider [phone] Cate Clark Unavailable [phone] Cate Clark Unavailable [phone] Allergies No known active allergies Medications citalopram [...] Info) Description 08/01/2025 2:00 PM EST Telemedicine [facility] [address] [place] [address] Sawyer Lal MD [address] [place] [address] Health Maintenance Due Date Last Done Comments [...] age to complete this topic Insurance MEDICARE [facility] MEDICARE [facility] MEDICARE [facility] MEDICARE [facility] Care Teams Restaurant Lead Relationship Specialty Start Date End Date Cate Clark [address] [place] [address] PCP - General 11/14/23 Cate Clark [address] [place] [address] PCP - Clinical PCP 08/28/16 Cate Clark [address] [place] [address] PCP - Insurance PCP 08/28/16
--- OUTSIDE RECORDS SUMMARY | 2025-07-05 08:36 | XMS_ITS | Continuity of Care Document ---
Author Organization [place] - [facility], [facility] Address [address] [place] [address] Care Team Providers Care Bread Packer Name Role Phone BRANDI DAMIAN Primary Care [...] Details Recorded Time Complete trisomy 21 syndrome 43944086 Active 2014 Chromosom al anomalies : Down's syndrome; Note: Date Diagnosed : 11/16/2014 4:08 PM (758.0) Not Available [facility] 4 03:12:52 Impacted cerumen 38056884 Active 2014 Impacted cerumen; Note: Date Diagnosed : 11/16/2014 4:13 PM (380.4) Not Available [facility] 4 03:12:52 Abnormal auditory perceptio n 29255636 Active 2015 Other abnormal auditory perceptio ns, bilateral ; Note: Date Diagnosed : 6 5:24 PM (H93.293) Not Available [facility] 4 03:12:52 Impacted cerumen in left ear 22552629388 32543 Active 2016 Impacted cerumen, left ear; Note: Date Diagnosed : 7 10:11 AM (H61.22) Not Available [facility] 4 03:12:51 Impacted cerumen of bilateral ears 96364718579 51522 Active 2018 Impacted cerumen, bilateral ; Note: Date Diagnosed : 10/27/2018 9:43 AM (H61.23) Not Available [facility] 4 03:12:51 Otorrhea of right ear 74114123325 70189 Active 2021 Otorrhea, right ear; Note: Date Diagnosed : 2 4:41 PM (H92.11) Not Available [facility] 4 03:12:52 Acute contact otitis externa 79550117 Active 2022 Acute contact otitis externa, right ear; Note: Date Diagnosed : 01/28/2023 4:47 PM (H60.531) Not Available [facility] 4 03:12:52 Obstructi ve sleep apnea syndrome 08346095 Active 2022 Obstructi ve sleep apnea (adult) (pediatri c); Note: Date Diagnosed : 11/16/2014 4:13 PM (327.23) ; Start Date : 5 Obstruc tive sleep apnea (adult) (pediatri c); Note: Date Diagnosed : 3 4:07 PM (G47.33) Not Available [facility] 4 03:12:52 Impacted cerumen in right ear 41935358146 93205 Active 2022 Impacted cerumen, right ear; Note: Date Diagnosed : 3 4:07 PM (H61.21) Not Available [facility] 4 03:12:53 Acute myringiti s of right ear 79201522348 28847 Active 2024 PURNIMA SHANNON MD [address] [place] [address], [facility] [place], [address] , [facility] - [facility] 5 10:46:13 Problem Notes None recorded. Medical Equipment None Reported. Allergies No known drug allergies Medications Name Sig Start Date Stop Date Status Note LastModified by Organization Details LastModified Time Prescript ion - Change 06/06 completed Not Available Not Available Not Available oxcarbaze pine 150 mg tablet 04/30 completed Medicati on ID: [id number] D uration Value: 90 Brand Name: oxcarbaz [...] topical cream 04/30 completed Medicati on ID: [id number] D uration Value: 30 Brand Name: triamcin [...] topical gel 04/30 completed Medicati on ID: [id number] D uration Value: 30 Brand Name: clindamy [...] mg tablet 04/30 completed Medicati on ID: [id number] D uration Value: 90 Brand Name: aripipra zole Sen d Method: E-Prescr ibed Sub s Allowed: subs [place] Speci al Instruct ion: TK 1 T PO D Medica tionGene ricName: aripipra zole Not Available Not Available Not Available Ciprodex 0.3 %-0.1 % ear drops,thaddeus pension Apply 4 drop into right ear twice a day as directed 03/25 completed Medicati on ID: [id number] D uration Value: 14 Brand Name: Ciprodex [...] [place] - [facility] 06/06/2025 13:51:11 Social History None recorded. Functional Status None recorded. Mental Status None recorded. Family History Nothing Reported. Medical History No medical history recorded. Past Encounters Encounter ID Performer Location Encounter Start Date Encounter Closed Date Diagnosis/Indication Diagnosis SNOMED-CT Code Diagnosis ICD10 Code Diagnosis IMO Codes Diagnosis Note [id number] PURNIMA SHANNON MD [facility] [address] [place] [address] 06/06/2025 13:43:06 06/06/2025 14:04:21 Impacted cerumen in right ear [id number] 111867 H61.21 Cerumen removed and tolerated well. No [...] Singh Member ID Guarantor Name 06/06/2025 2 [place]: [facility] Jose Luis Huertas [id number] Adelaide Aleksandar 06/06/2025 1 MEDICARE B-[place]: [employer] Jose Luis Huertas [id number] Adelaide Huertas Notes Date Note Type Note Provider Name and Address Organization Details Recorded Time 06/06/2025 text/html No bleeding. There is some cerumen. PURNIMA SHANNON MD [address] [place] [address], [address], [facility] - [facility] 06/07/2025 10:48:12
--- OUTSIDE RECORDS SUMMARY | 2025-07-05 08:36 | XMS_ITS | Data Portability ---
Author Organization [place] - [facility], Allergy Address [address] [place] [id number] Care Team Providers Care Joint Setter Name Role Phone BRANDI DAMIAN Primary Care [...] 0.05 % eye drops,thaddeus pension 2024 [id number] [address] [place], [place], [phone], 06/06/2025 13:52:56 Patient TargetsNo targets recorded. Patient [...] Details Recorded Time Complete trisomy 21 syndrome [id number] Active 2014 Chromosom al anomalies : Down's syndrome; Note: Date Diagnosed : 11/16/2014 4:08 PM (758.0) Not Available [facility] 4 03:12:52 Impacted cerumen 23148369 Active 2014 Impacted cerumen; Note: Date Diagnosed : 11/16/2014 4:13 PM (380.4) Not Available [facility] 4 03:12:52 Abnormal auditory perceptio n 39118611 Active 2015 Other abnormal auditory perceptio ns, bilateral ; Note: Date Diagnosed : 6 5:24 PM (H93.293) Not Available [facility] 4 03:12:52 Impacted cerumen in left ear [id number] 30339 Active 2016 Impacted cerumen, left ear; Note: Date Diagnosed : 7 10:11 AM (H61.22) Not Available [facility] 4 03:12:51 Impacted cerumen of bilateral ears 59352887970 92963 Active 2018 Impacted cerumen, bilateral ; Note: Date Diagnosed : 10/27/2018 9:43 AM (H61.23) Not Available [facility] 4 03:12:51 Otorrhea of right ear 73012659767 24982 Active 2021 Otorrhea, right ear; Note: Date Diagnosed : 2 4:41 PM (H92.11) Not Available [facility] 4 03:12:52 Acute contact otitis externa 81046549 Active 2022 Acute contact otitis externa, right ear; Note: Date Diagnosed : 01/28/2023 4:47 PM (H60.531) Not Available [facility] 4 03:12:52 Obstructi ve sleep apnea syndrome 21491876 Active 2022 Obstructi ve sleep apnea (adult) (pediatri c); Note: Date Diagnosed : 11/16/2014 4:13 PM (327.23) ; Start Date : 5 Obstruc tive sleep apnea (adult) (pediatri c); Note: Date Diagnosed : 3 4:07 PM (G47.33) Not Available [facility] 4 03:12:52 Impacted cerumen in right ear 22964943097 22716 Active 2022 Impacted cerumen, right ear; Note: Date Diagnosed : 3 4:07 PM (H61.21) Not Available [facility] 4 03:12:53 Acute myringiti s of right ear 16905434569 50927 Active 2024 PURNIMA SHANNON MD [address] [place] [address], [place], [address] [facility] - [facility] 5 10:46:13 Problem Notes None recorded. Medical Equipment None Reported. Allergies No known drug allergies Medications Name Sig Start Date Stop Date Status Note LastModified by Organization Details LastModified Time Prescript ion - Change 06/06 completed Not Available Not Available Not Available oxcarbaze pine 150 mg tablet 04/30 completed Medicati on ID: [id number] D uration Value: 90 Brand Name: oxcarbaz [...] topical cream 04/30 completed Medicati on ID: [id number] D uration Value: 30 Brand Name: triamcin [...] topical gel 04/30 completed Medicati on ID: [id number] D uration Value: 30 Brand Name: rose [...] mg tablet 04/30 completed Medicati on ID: [id number] D uration Value: 90 Brand Name: aripipra zole Sen d Method: E-Prescr ibed Sub s Allowed: subs OK Speci al Instruct ion: TK 1 T PO D Medica tionGene ricName: aripipra zole Not Available Not Available Not Available Ciprodex 0.3 %-0.1 % ear drops,thaddeus pension Apply 4 drop into right ear twice a day as directed 03/25 completed Medicati on ID: [id number] D uration Value: 14 Brand Name: Ciprodex [...] Updated DateTime 03/25/2024 154.94 cm 25.3 kg/m2 14689.38 g Latricia Helm [place] - [facility] 03/25/2024 16:29:16 Date Recorded Body height Body mass index (BMI) Body weight Provider Name and Address Organization Details Last Updated DateTime 03/25/2025 154.94 cm 23.2 kg/m2 82311.86 g Latricia Helm [place] - [facility] 03/25/2025 10:29:45 Date Recorded Body height Provider Name an d Address Organization Details Last Updated DateTime 06/06/2025 154.94 cm Latricia Helm [place] - [facility] 06/06/2025 13:51:11 Social History None recorded. Functional Status None recorded. Mental Status None recorded. Family History Nothing Reported. Medical History No medical history recorded. Past Encounters Encounter ID Performer Location Encounter Start Date Encounter Closed Date Diagnosis/Indication Diagnosis SNOMED-CT Code Diagnosis ICD10 Code Diagnosis IMO Codes Diagnosis Note [id number] PURNIMA SHANNON MD [facility] [address] [place] [address] 03/25/2024 15:23:02 03/25/2024 16:46:38 Impacted cerumen of bilateral ears [id number] 824448 H61.23 Cerumen was removed bilateral and tolerated well. Every 6 month cleaning previously recommende d due to infections when he was getting cleanings once a year. Will be due for updated audiogram at that time. [id number] PURNIMA SHANNON MD [facility] [address] [address] 03/25/2025 10:24:54 03/25/2025 10:53:48 Acute myringitis of right ear [id number] 497174 H73.001 450303 30-year-ol d male presents today for evaluation [...] treatment or if otherwise well, 6 months. [id number] PURNIMA SHANNON MD [facility] [address] [address] 06/06/2025 13:43:06 06/06/2025 14:04:21 Impacted cerumen in right ear 0241169029 359799 H61.21 Cerumen removed and tolerated well. No [...] Singh Member ID Guarantor Name 06/06/2025 2 [place]: [facility] Jose Luis Huertas [id number] Adelaide Huertas 06/06/2025 1 MEDICARE B-[place]: [facility] Jose Luis Huertas [id number] Adelaide uHertas Notes Date Note Type Note Provider Name [...] for cerumen check. PURNIMA SHANNON MD [address] [facility],[address], [address], [facility] - [facility] 03/26/2024 08:03:29 03/25/2025 text/html a few days ago, something dark in the ear [facility] earlier this year had an ear wash on amoxicillin no ear drops PURNIMA SHANNON MD [address] [facility],[address], [address], [place] - [facility] 03/26/2025 07:17:37 06/06/2025 text/html No bleeding. There is some cerumen. PURNIMA SHANNON MD [address] [facility],[address], [address], [facility] - [facility] 06/07/2025 10:48:12
== END ==
LOC: HO.CARD 06:53
PROVIDERS: PCP Internal Medicine; Visit Provider Internal Medicine
DX: I35.1 Nonrheumatic aortic (valve) insufficiency (principal); Q90.9 Down syndrome, unspecified
CPT/HCPCS: 93306

== ENCOUNTER → 2025-07-05 14:52 | Outpatient (BNV) | payer MEDICARE, MEDICAID, SELFPAY | PROVIDERS: PCP Internal Medicine; Visit Provider Internal Medicine | DX: I35.1 Nonrheumatic aortic (valve) insufficiency (principal) | CPT/HCPCS: 93306 ==